=== PATIENT | male | born 1955 | race Caucasian/White ===

== ENCOUNTER 2021-07-31 14:50 | Emergency (ER) | payer OTHER ==
[~2021-07-31] VITALS: Ht 172.7 cm; Wt 83.5 kg
[2021-07-31] MEDS ORDERED: ZESTRIL10 M1 (15:51)
== END 2021-07-31 19:20 | disposition home or self-care (01) ==
LOC: ER 14:50
DX: S50.812A Abrasion of left forearm, initial encounter (principal); W01.118A Fall on same level from slipping, tripping and stumbling with subsequent striking against other sharp object, initial encounter; Y93.89 Activity, other specified; Y92.89 Other specified places as the place of occurrence of the external cause; Y99.8 Other external cause status